=== PATIENT | male | born 1990 | race American Indian/Alaskan Native ===

== ENCOUNTER 2018-12-29 11:04 | Emergency (ER) | payer SELFPAY ==
[2018-12-29 11:08] VITALS: BP 133/94
--- NOTE | 2018-12-29 12:18 | Emergency Department Report ---
ED Lower Extremity HPI - General Chief Complaint: Extremity Problem,Nontraumatic Stated Complaint: R LEG PAIN Time Seen by Provider: 12/29/18 12:03 Source: patient Mode of arrival: Ambulatory Limitations: No Limitations - History of Present Illness Initial Comments: ARIN is a 28-year-old male who comes to the ER from work today complaining of right leg pain. He states that the inside of his right lower extremity hernandez. Patient has no medical problems. He's had no trauma. He works at [employer]. He has no other symptoms no chest pain or shortness of breath no fever. Patient states that he is concerned because a cousin of his was recently told he had a blood clot in his leg. - Related Data Allergies Allergy/AdvReac Type Severity Reaction Status Date / Time No Known Allergies Allergy Unverified 12/29/18 11:08 ED Review of Systems ROS: Stated complaint: R LEG PAIN Other details as noted in HPI Comment: All other systems reviewed and negative Constitutional: denies: see HPI Eyes: denies: eye pain ENT: denies: ear pain Respiratory: denies: cough Cardiovascular: denies: palpitations Endocrine: denies: flushing Gastrointestinal: denies: nausea Genitourinary: denies: dysuria Musculoskeletal: as per HPI. denies: back pain ED Past Medical Hx - Past Medical History Previous Medical History?: No - Surgical History Past Surgical History?: No - Family History Family history: no significant - Social History Smoking Status: Current Every Day Smoker Substance Use Type: None ED Physical Exam - General Limitations: No Limitations General appearance: alert - Head Head exam: Present: normocephalic - Eye Eye exam: Present: normal appearance, PERRL - ENT ENT exam: Present: normal exam - Neck Neck exam: Present: normal inspection - Respiratory Respiratory exam: Present: normal lung sounds bilaterally - Cardiovascular Cardiovascular Exam: Present: regular rate - GI/Abdominal GI/Abdominal exam: Present: soft, normal bowel sounds - Extremities Exam Extremities exam: Present: normal inspection, full ROM - Expanded Lower Extremity Exam Right Lower Leg exam: Present: normal inspection, full ROM. Absent: tenderness, swelling, abrasion, laceration, ecchymosis, deformity, crepidus, dislocation, erythema, Jayda's sign Ankle exam: Present: normal inspection Foot/Toe exam: Present: normal inspection Neuro vascular tendon exam: Present: no vascular compromise. Absent: pulse deficit, abnormal cap refill, motor deficit, sensory deficit, tendon deficit, extremity cold to touch, pallor, abnormal 2-point discrimination, decreased fine/light touch, foot drop, peroneal nerve deficit, significant pain with passive ROM of distal joint Gait: Positive: observed and normal - Back Exam Back exam: Present: normal inspection - Neurological Exam Neurological exam: Present: alert, oriented X3 - Psychiatric Psychiatric exam: Present: normal affect, normal mood ED Course Vital Signs 12/29/18 11:07 Temperature 98.3 F Pulse Rate 87 Respiratory 18 Rate Blood Pressure 133/94 O2 Sat by Pulse 98 Oximetry ED Lower Extremity MDM - Radiology Data Radiology results: report reviewed, image reviewed - Medical Decision Making US NEG NO TRAUMA NEUROVASC INTACT AMBULATORY DC HOME WITH REFERRAL TO PCP FOR FURTHER EVALUATION Vital Signs 12/29/18 11:07 Temperature 98.3 F Pulse Rate 87 Respiratory 18 Rate Blood Pressure 133/94 O2 Sat by Pulse 98 Oximetry Critical care attestation.: If time is entered above; I have spent that time in minutes in the direct care of this critically ill patient, excluding procedure time. ED Disposition Clinical Impression: Leg pain, Musculoskeletal pain Disposition: DC-01 TO HOME OR SELFCARE Is pt being admited?: No Does the pt Need Aspirin: No Condition: Stable Additional Instructions: DIET TOLERATED MEDS ORDERED TODAY IN ER FOLLOW INSTRUCTIONS ON THE BOTTLE FOLLOW UP PCP WITHIN 48 HOURS TO ENSURE YOU ARE GETTING BETTER ACTIVITY TOLERATED MOTRIN OR TYLENOL FOR PAIN OR FEVER RETURN TO THE ER FOR WORSENING SYMPTOMS NOT RELIEVED BY YOUR MEDICATIONS. WARM COMPRESSES STRETCH DAILY HYDRATE WELL WITH WATER Referrals: [facility] [Outside] - 3-5 Days Time of Disposition: 12:42
--- NOTE | 2018-12-29 13:31 | Vascular Lab Report ---
PROCEDURE: VL VENOUS DUPLEX LE RT TECHNIQUE: Grayscale, color flow and spectral waveform images were obtained of right lower extremity . HISTORY: pain calf COMPARISON: None FINDINGS: There is no deep venous thrombosis seen in the right lower extremity. Flow is demonstrated by color flow and spectral waveform imaging. There is appropriate wall compression and augmentation. There is also no evidence of superficial venous thrombus. IMPRESSION: There is no evidence for DVT in right lower extremity. This document is electronically signed by Amberly Barron MD., Dec 29 2018 01:29:22 PM ET
== END 2018-12-29 13:07 | disposition home or self-care (01) ==
LOC: ED 11:04
DX: M79.604 Pain in right leg (principal); F17.200 Nicotine dependence, unspecified, uncomplicated